=== PATIENT | female | born 1980 | race Asian ===

== ENCOUNTER 2025-07-04 19:29 | Inpatient (IN) | payer BC ==
[~2025-07-04] VITALS: Ht 157.5 cm; Wt 68.0 kg
[2025-07-04 20:28] LABS: PLATELET COUNT (AUTO) 470 K/uL (150-450); RED BLOOD CELL COUNT(AUTO) 2.10 MIL/uL (4.0-5.2); RED CELL DISTRIBUTION WIDTH 18.0 % (11.5-15.0); WHITE BLOOD COUNT (AUTO) 10.7 K/uL (4.3-11.0)
[2025-07-04 20:35] LABS: CALCIUM, SERUM 8.6 mg/dL (8.5-10.1); CREATININE 0.7 mg/dL (0.6-1.3); SODIUM SERUM 133.0 mmol/L (136-145); UREA NITROGEN, BLOOD 11.0 mg/dL (7-18)
[2025-07-04 20:39] LABS: INR 0.87 (0.91-1.10)
[2025-07-04 20:42] LABS: ASPARTATE AMINOTRANSFERASE 11.0 U/L (15-37); TOTAL PROTEIN, SERUM 6.9 g/dL (6.4-8.2)
[2025-07-04] MEDS ORDERED: OLME20TA13 PO (20:46)
[2025-07-04] MEDS ORDERED: LEVE100023 PO (20:46)
[2025-07-04] MEDS ORDERED: ONDANSETRON HCL/PF 4 MG/2 ML VIAL IVP PRN (21:00)
[2025-07-04] MEDS ORDERED: TEMAZEPAM 15 MG CAPSULE PO PRN (21:00)
[2025-07-04] MEDS ORDERED: MAGNESIUM HYDROXIDE 30 ML UDC PO PRN (21:00)
[2025-07-04] MEDS ORDERED: MAG HYDROX/AL HYDROX/SIMETH 30 ML UDC PO PRN (21:00)
[2025-07-04] MEDS ORDERED: ACETAMINOPHEN 325 MG TABLET PO PRN (21:00)
[2025-07-04] MEDS ORDERED: Z GUARD REMEDY 4 OZ OINT TP PRN (21:00)
[2025-07-04 21:43] LABS: LYMPHOCYTES % (MANUAL) 26 % (16-48); MONOCYTES % (MANUAL) 3 % (0-11.0); NEUTROPHILS % (MANUAL) 71 (42-76); PLATELET ESTIMATE INCREASED
[2025-07-04 22:20] VITALS: BP 138/95; TEMP 98.6; O2SAT 100
[2025-07-04 22:53] VITALS: BP 124/87; TEMP 98.2
[2025-07-04 23:08] VITALS: BP 119/85; TEMP 97.9
[2025-07-04 23:23] VITALS: BP 124/81; TEMP 97.8
[2025-07-04 23:53] VITALS: BP 118/82; TEMP 98
[2025-07-05 00:23] VITALS: BP 118/82; TEMP 98.1
[2025-07-05 00:51] VITALS: BP 117/85; TEMP 98.1
[2025-07-05] MEDS: PANTOPRAZOLE 40 MG TABLET.DR PO SCH (06:33)
[2025-07-05 06:43] LABS: PLATELET COUNT (AUTO) 372 K/uL (150-450); RED BLOOD CELL COUNT(AUTO) 2.54 MIL/uL (4.0-5.2); RED CELL DISTRIBUTION WIDTH 18.3 % (11.5-15.0); WHITE BLOOD COUNT (AUTO) 8.7 K/uL (4.3-11.0)
[2025-07-05 07:00] LABS: CALCIUM, SERUM 7.6 mg/dL (8.5-10.1); CREATININE 0.8 mg/dL (0.6-1.3); PHOSPHORUS 4.1 mg/dL (2.5-4.9); SODIUM SERUM 141.0 mmol/L (136-145); UREA NITROGEN, BLOOD 9.0 mg/dL (7-18)
[2025-07-05 07:02] LABS: IRON, SERUM 27.0 ug/dl (50-175)
[2025-07-05 08:39] VITALS: BP 110/85; TEMP 98.2; O2SAT 98
[2025-07-05] MEDS: DOCUSATE SODIUM 100 MG CAPSULE PO SCH (09:01)
[2025-07-05] MEDS: LOSARTAN POTASSIUM 50 MG TABLET PO SCH (09:01)
[2025-07-05] MEDS: LEVETIRACETAM (250 MG) 250 MG TABLET PO SCH (09:01)
[2025-07-05 16:14] VITALS: BP 109/82; TEMP 98.1; O2SAT 95
[2025-07-05 20:00] VITALS: BP 121/97; TEMP 97.7; TEMP 97.9; O2SAT 98
[2025-07-06 04:00] VITALS: BP 104/63; TEMP 97.9; O2SAT 98
[2025-07-06 06:50] LABS: PLATELET COUNT (AUTO) 386 K/uL (150-450); RED BLOOD CELL COUNT(AUTO) 2.75 MIL/uL (4.0-5.2); RED CELL DISTRIBUTION WIDTH 17.9 % (11.5-15.0); WHITE BLOOD COUNT (AUTO) 7.9 K/uL (4.3-11.0)
[2025-07-06 07:00] VITALS: BP 106/82; TEMP 97.7; O2SAT 97
[2025-07-06 07:01] LABS: CALCIUM, SERUM 7.9 mg/dL (8.5-10.1); CREATININE 0.8 mg/dL (0.6-1.3); PHOSPHORUS 4.7 mg/dL (2.5-4.9); SODIUM SERUM 138.0 mmol/L (136-145); UREA NITROGEN, BLOOD 13.0 mg/dL (7-18)
[2025-07-06 08:13] VITALS: BP 106/82
[2025-07-06] MEDS ORDERED: ASCO500C18 PO (10:35)
[2025-07-06] MEDS ORDERED: HYDR30CR79 TP (10:35)
[2025-07-06] MEDS ORDERED: POLY17PO4 PO (10:35)
[2025-07-06] MEDS ORDERED: FERR325T23 PO (10:35)
== END 2025-07-06 12:45 | disposition home or self-care (01) | DRG 394 ==
LOC: ER 19:39 → MED 21:53
PROVIDERS: ADMIT Registered Nurse Psychiatric/Mental Health; ATTEND Nurse Practitioner Family
PROC: 30233N1 Transfusion of Nonautologous Red Blood Cells into Peripheral Vein, Percutaneous Approach (ICD-10-PCS; principal; 2025-07-04)
DX: K64.9 Unspecified hemorrhoids (principal); E87.1 Hypo-osmolality and hyponatremia; K62.5 Hemorrhage of anus and rectum; G40.909 Epilepsy, unspecified, not intractable, without status epilepticus; K59.00 Constipation, unspecified; D25.9 Leiomyoma of uterus, unspecified; I10 Essential (primary) hypertension; Z79.899 Other long term (current) drug therapy; D50.9 Iron deficiency anemia, unspecified; Z86.59 Personal history of other mental and behavioral disorders
CPT/HCPCS: 36415; 80048-TC; 80076-TC; 83540-TC; 83735-TC; 84100-TC; 84702-TC; 85025-TC; 85027-TC; 85730-TC; 86850-TC; A4223; G0378; J7040; P9016